=== PATIENT | female | born 1965 | race Caucasian/White ===

== ENCOUNTER 2018-04-30 10:57 | Outpatient (CLI) | payer OTHER | END 2018-04-30 11:02 | disposition home or self-care (01) | LOC: MAMO-SONO 10:57 | DX: Z12.31 Encounter for screening mammogram for malignant neoplasm of breast (principal); N60.01 Solitary cyst of right breast; N60.02 Solitary cyst of left breast ==

== ENCOUNTER 2019-06-20 12:39 | Outpatient (CLI) | payer OTHER | END 2019-06-20 15:37 | disposition home or self-care (01) | LOC: MAMO-SONO 12:39 | DX: Z12.31 Encounter for screening mammogram for malignant neoplasm of breast (principal); Z87.898 Personal history of other specified conditions; N60.29 Fibroadenosis of unspecified breast ==

== ENCOUNTER 2020-02-01 22:52 | Emergency (ER) | payer OTHER ==
[~2020-02-01] VITALS: Ht 61 cm; Wt 5.0 kg
[2020-02-01] MEDS ORDERED: PROMETRIUM200 MG (23:10)
[2020-02-01] MEDS ORDERED: DIM (23:11)
[2020-02-02] MEDS ORDERED: TOPROL XL50 M1 PO (15:37)
[2020-02-02] MEDS ORDERED: FLECAINIDE ACET50 MG PO (15:37)
[2020-02-02] MEDS ORDERED: NASAL MIST126 ML NASAL (15:37)
[2020-02-02] MEDS ORDERED: ELIQUIS5 MG PO (15:37)
== END 2020-02-02 15:40 | disposition home or self-care (01) ==
LOC: ER 22:52 → CPU-OBS 23:08 → SURH 02-02 02:29 → ER 02-02 02:29 → SURH 02-02 16:33
DX: I48.0 Paroxysmal atrial fibrillation (principal); I08.3 Combined rheumatic disorders of mitral, aortic and tricuspid valves; Z79.01 Long term (current) use of anticoagulants
CPT/HCPCS: G0378; G0379; 93306; 93005

== ENCOUNTER 2020-07-21 13:00 | Outpatient (CLI) | payer OTHER ==
[~2020-07-21 13:00] MED LIST: DIM; ELIQUIS5 MG PO; FLECAINIDE ACET50 MG PO; NASAL MIST126 ML NASAL; PROMETRIUM200 MG; TOPROL XL50 M1 PO
== END 2020-07-21 15:00 | disposition home or self-care (01) ==
LOC: PPH VACUNA 13:00
DX: Z23 Encounter for immunization (principal)

== ENCOUNTER 2020-10-20 09:00 | Outpatient (CLI) | payer OTHER | END 2020-10-20 15:00 | disposition home or self-care (01) | LOC: PPH VACUNA 09:00 | DX: Z23 Encounter for immunization (principal) ==

== ENCOUNTER 2021-08-02 08:00 | Outpatient (CLI) | payer OTHER | END 2021-08-02 08:30 | disposition home or self-care (01) | LOC: PPH VACUNA 08:00 | PROVIDERS: ATTEND Emergency Medicine Pediatric Emergency Medicine | DX: Z23 Encounter for immunization (principal) ==

== ENCOUNTER 2021-11-16 06:40 | Outpatient (CLI) | payer OTHER | END 2021-11-16 06:44 | disposition home or self-care (01) | LOC: LAB 06:40 | PROVIDERS: ATTEND Internal Medicine | DX: D64.89 Other specified anemias (principal); R10.84 Generalized abdominal pain; E78.49 Other hyperlipidemia ==

== ENCOUNTER 2022-02-05 10:23 | Outpatient (CLI) | payer OTHER | END 2022-02-05 10:30 | disposition home or self-care (01) | LOC: LAB 10:23 | DX: E20.0 Idiopathic hypoparathyroidism (principal); E03.0 Congenital hypothyroidism with diffuse goiter; E34.9 Endocrine disorder, unspecified ==

== ENCOUNTER 2022-02-10 08:00 | Outpatient (CLI) | payer OTHER | END 2022-02-10 08:30 | disposition home or self-care (01) | LOC: PPH VACUNA 08:00 | PROVIDERS: ATTEND Emergency Medicine Pediatric Emergency Medicine | DX: Z23 Encounter for immunization (principal) ==

== ENCOUNTER 2022-02-24 09:04 | Outpatient (CLI) | payer OTHER | END 2022-02-24 15:16 | disposition home or self-care (01) | LOC: LAB 09:04 | PROVIDERS: ATTEND Obstetrics & Gynecology | DX: E55.9 Vitamin D deficiency, unspecified (principal); E78.00 Pure hypercholesterolemia, unspecified; E28.39 Other primary ovarian failure ==

== ENCOUNTER 2022-04-29 07:01 | Inpatient (IN) | payer OTHER ==
[~2022-04-29] VITALS: Ht 157.5 cm; Wt 58.1 kg
--- NOTE | 2022-04-29 07:13 | NUR ---
SE RECIBE PTE ALERTA Y ORIENTADA X3, QUIEN REFIERE DOLOR ABDOMINAL EN LADO CHERIE, EL CUAL COMENZO EL LILY DE HOY. SE CESAR S/V Y SE UBICA PTE EN YONI 7.
[2022-04-29] MEDS ORDERED: PROGESTERONE200 MG (15:30)
[2022-05-02] MEDS ORDERED: HYOSCYAMINE0.125 M1 SL (10:02)
[2022-05-02] MEDS ORDERED: CIPRO500 MG PO (10:03)
[2022-05-02] MEDS ORDERED: FLAGYL375 MG PO (10:04)
[2022-05-02] MEDS ORDERED: PROTONIX40 MG PO (10:07)
[2022-05-02] MEDS ORDERED: PROBIOTIC1 EAC4 PO (10:08)
== END 2022-05-02 13:46 | disposition home or self-care (01) | DRG 392 ==
LOC: ER 07:01 → OB/GYN 12:28 → SEC-K 12:28 → OB/GYN 14:47
PROVIDERS: ADMIT Internal Medicine; ATTEND Internal Medicine
PROC: BW21YZZ Computerized Tomography (CT Scan) of Abdomen and Pelvis using Other Contrast (ICD-10-PCS; principal; 2022-04-29)
DX: K57.32 Diverticulitis of large intestine without perforation or abscess without bleeding (principal); K62.5 Hemorrhage of anus and rectum; I10 Essential (primary) hypertension; I48.91 Unspecified atrial fibrillation; Z20.822 Contact with and (suspected) exposure to COVID-19

== ENCOUNTER 2022-05-13 06:41 | Outpatient (CLI) | payer OTHER ==
[~2022-05-13 06:41] MED LIST changes: +CIPRO500 MG PO; +FLAGYL375 MG PO; +HYOSCYAMINE0.125 M1 SL; +PROBIOTIC1 EAC4 PO; +PROGESTERONE200 MG; +PROTONIX40 MG PO
== END 2022-05-13 06:42 | disposition home or self-care (01) ==
LOC: LAB 06:41
PROVIDERS: ATTEND Specialist
DX: R10.9 Unspecified abdominal pain (principal)

== ENCOUNTER 2022-07-06 08:00 | Outpatient (CLI) | payer OTHER | END 2022-07-06 08:05 | disposition home or self-care (01) | LOC: PPH VACUNA 08:00 | PROVIDERS: ATTEND Emergency Medicine Pediatric Emergency Medicine | DX: Z23 Encounter for immunization (principal) ==

== ENCOUNTER 2022-07-15 08:25 | Outpatient (CLI) | payer OTHER | END 2022-07-15 08:26 | disposition home or self-care (01) | LOC: LAB 08:25 | PROVIDERS: ATTEND Surgery | DX: R10.32 Left lower quadrant pain (principal); K57.32 Diverticulitis of large intestine without perforation or abscess without bleeding; Z03.818 Encounter for observation for suspected exposure to other biological agents ruled out; Z20.822 Contact with and (suspected) exposure to COVID-19 ==

== ENCOUNTER 2023-04-12 08:06 | Outpatient (CLI) | payer OTHER | END 2023-04-12 08:07 | disposition home or self-care (01) | LOC: LAB 08:06 | PROVIDERS: ATTEND Specialist | DX: R79.9 Abnormal finding of blood chemistry, unspecified (principal); R94.4 Abnormal results of kidney function studies ==

== ENCOUNTER 2023-04-12 12:14 | Outpatient (CLI) | payer OTHER | END 2023-04-12 12:19 | disposition home or self-care (01) | LOC: TOM 12:14 | PROVIDERS: ATTEND Specialist | DX: K57.30 Diverticulosis of large intestine without perforation or abscess without bleeding (principal) ==

== ENCOUNTER 2023-07-14 11:00 | Outpatient (CLI) | payer OTHER | END 2023-07-14 11:10 | disposition home or self-care (01) | LOC: PPH VACUNA 11:00 | PROVIDERS: ATTEND Emergency Medicine Pediatric Emergency Medicine | DX: Z23 Encounter for immunization (principal) ==

== ENCOUNTER 2023-08-21 08:19 | Outpatient (CLI) | payer OTHER ==
[2023-08-21 09:01] LABS: URINE APPEARANCE Cloudy; URINE BILIRRUBIN Negative (NEGATIVE); URINE BLOOD Large; URINE COLOR Yellow; URINE GLUCOSE Negative (NEGATIVE); URINE LEUKOCYTE Large; URINE NITRATE Positive; URINE PROTEIN 30 (NEGATIVE)
[2023-08-21 09:04] LABS: URINE RBC 792.1 uL (0.0-20.8); URINE WBC 3371.2 uL (0.0-23.2)
[2023-08-21 09:11] LABS: URINE BACTERIA > 9821.5 uL (0.0-1933)
== END 2023-08-21 13:34 | disposition home or self-care (01) ==
LOC: LAB 08:19
PROVIDERS: ATTEND Specialist
DX: N39.0 Urinary tract infection, site not specified (principal); Z88.0 Allergy status to penicillin; Z88.6 Allergy status to analgesic agent

== ENCOUNTER → 2024-01-15 06:45 | Outpatient (CLI) | payer OTHER ==
[2024-01-15 07:58] LABS: HEMOGLOBIN 13.7 g/dL (12.0-15.00); MEAN CELL VOLUME 89.4 fL (80.00-100.00); MEAN CORPUSCULAR HEMOGLOBIN 30.7 pg (27.00-32.0); MEAN CORPUSCULAR HGB CONC 34.3 g/dl (32.0-36.0); PLATELET COUNT 323 K/uL (150-450); RED BLOOD COUNT 4.47 M/uL (4.00-6.00); RED CELL DISTRIBUTION WIDTH 12.9 % (11.5-14.5)
[2024-01-15 08:22] LABS: PH,URINE 5.5 (5.0-8.0); URINE APPEARANCE Clear; URINE BILIRRUBIN Negative (NEGATIVE); URINE COLOR Yellow; URINE GLUCOSE Negative (NEGATIVE); URINE LEUKOCYTE Small; URINE NITRATE Negative; URINE PROTEIN Negative (NEGATIVE); URINE UROBILINOGEN 0.2 E.U./dl
[2024-01-15 08:23] LABS: URINE BACTERIA 94.4 uL (0.0-1933); URINE EPITHELIAL CELLS 16.6 uL (0.0-38.8); URINE RBC 19.1 uL (0.0-20.8)
[2024-01-15 08:23] LABS: INR 0.98; PARTIAL THROMBOPLASTIN TIME 28.8 SECONDS (22.0-34.0); PROTHROMBIN TIME 10.3 SECONDS (9.0-11.5)
[2024-01-15 08:42] LABS: ALBUMIN 3.8 gm/dL (3.4-5.0); BILIRUBIN TOTAL 0.88 mg/dL (0.3-1.2); CALCIUM 8.6 mg/dL (8.5-10.1); CREATININE SERUM 0.58 mg/dL (0.55-1.02); GFR 106.4; GLOBULINA 2.9 G/DL (2.4-3.5); POTASSIUM 4.31 mEq/L (3.5-5.1); TOTAL PROTEIN 6.7 gm/dL (6.4-8.2)
[2024-01-16 08:24] LABS: URINE BLOOD TRACES/R
== END | disposition home or self-care (01) ==
LOC: RAD 06:45
PROVIDERS: ATTEND Specialist
DX: Z01.818 Encounter for other preprocedural examination (principal)

== ENCOUNTER 2025-05-20 11:52 | Outpatient (CLI) | payer OTHER | END 2025-05-20 11:55 | disposition home or self-care (01) | LOC: MAMO-SONO 11:52 | PROVIDERS: ATTEND Obstetrics & Gynecology | DX: N60.11 Diffuse cystic mastopathy of right breast (principal); N60.12 Diffuse cystic mastopathy of left breast; Z12.31 Encounter for screening mammogram for malignant neoplasm of breast ==

== ENCOUNTER 2025-09-01 13:54 | Outpatient (CLI) | payer OTHER ==
[2025-09-01 14:21] LABS: BASO % 0.4 % (0.1-1.2); EOS # 0.03 (0.04-0.54); EOS % 0.3 % (0.7-7.0); LYMPH # 1.39 (1.18-3.74); LYMPH % 12.2 % (19.3-53.1); MEAN PLATELET VOLUME 9.00 fl (9.4-12.4); MONO # 0.66 (0.24-0.82); MONO % 5.8 % (4.7-12.5); NEUT # 9.24 (1.56-6.13); NEUT % 81.0 % (34.0-71.1); RED CELL DISTRIBUTION WIDTH 11.8 % (11.6-14.4)
[2025-09-01 14:24] LABS: URINE APPEARANCE Clear; URINE BILIRRUBIN Negative (NEGATIVE); URINE BLOOD NHT; URINE COLOR Yellow; URINE KETONE Trace (NEGATIVE); URINE LEUKOCYTE Negative; URINE NITRATE Negative; URINE PROTEIN Negative (NEGATIVE); URINE UROBILINOGEN 0.2 E.U./dl
[2025-09-01 14:27] LABS: URINE BACTERIA 14.3 uL (0.0-1933); URINE EPITHELIAL CELLS 4.6 uL (0.0-38.8); URINE RBC 29.0 uL (0.0-20.8); URINE WBC 2.1 uL (0.0-23.2)
[2025-09-01 14:53] LABS: URINE CAST 0.00 uL (0.0-1.40); URINE GLUCOSE >=1000 MG/DL (NEGATIVE)
[2025-09-01 15:21] LABS: ALT/SGPT 22.0 U/L (12-78); AST/SGOT 13.0 U/L (15-37); BILIRUBIN TOTAL 0.38 mg/dL (0.3-1.2); BUN CREA RATIO 28.0 (7.0-25.0); CREATININE SERUM 0.54 mg/dL (0.55-1.02); GFR 114.77; GLOBULINA 3.0 G/DL (2.4-3.5); GLUCOSE FASTING 164.0 mg/dL (65-100); OSMOLALITY SERUM 282.0 MOSM/KG (275-295)
[2025-09-01] MEDS ORDERED: TOPROL XL50 M1 (16:10)
== END 2025-09-01 15:24 | disposition home or self-care (01) ==
LOC: LAB 13:54
PROVIDERS: ATTEND Internal Medicine
DX: E03.9 Hypothyroidism, unspecified (principal); N39.0 Urinary tract infection, site not specified; E78.9 Disorder of lipoprotein metabolism, unspecified; K57.00 Diverticulitis of small intestine with perforation and abscess without bleeding

== ENCOUNTER 2025-09-01 15:57 | Inpatient (IN) | payer OTHER ==
[~2025-09-01] VITALS: Ht 157.5 cm; Wt 58.1 kg
[2025-09-01 16:07] VITALS: O2SAT 98
[2025-09-01] MEDS ORDERED: TOPROL XL50 M1 (16:10)
--- NOTE | 2025-09-01 16:11 | NUR ---
PTE ALERTA Y ORIENTADA X3 VERBALIZA QUE TIENE DOLOR EN EL ABDOMEN SUPERIOR Y IQZ QUE SE IRIADIA PARA LA ESPALDA DESDE LA NOCHE DE EMILIO
[2025-09-01] MEDS ORDERED: PANTOPRAZOLE SODIUM 40 MG/VIAL VIAL IV SCH (17:13)
[2025-09-01] MEDS ORDERED: 0.9 % SODIUM CHLORIDE 1,000 ML IV SCH (17:15)
[2025-09-01] MEDS ORDERED: CIPROFLOXACIN IN 5 % DEXTROSE 400 MG/200 ML PIGGYBAG IV ONE (17:30)
[2025-09-01] MEDS ORDERED: METRONIDAZOLE/SODIUM CHLORIDE 500 MG/100 ML PIGGYBACK IV ONE (17:30)
[2025-09-01] MEDS ORDERED: MORPHINE SULFATE 2 MG/ML SYRINGE IV PRN (18:00)
[2025-09-01] MEDS ORDERED: CIPROFLOXACIN IN 5 % DEXTROSE 200 ML IV SCH (18:00)
[2025-09-01] MEDS ORDERED: METOPROLOL TARTRATE 50 MG TABLET PO SCH (18:01)
[2025-09-01] MEDS ORDERED: ONDANSETRON HCL 4 MG in 0.9 % SODIUM CHLORIDE 50 ML IV PRN (18:15)
[2025-09-01] MEDS ORDERED: ACETAMINOPHEN 325 MG TABLET PO PRN (18:15)
--- NOTE | 2025-09-01 18:33 | NUR ---
SE EDUCA PACIENTE SOBRE EL TX MEDICO Y ESTA REFIERE ENTENDER. SE CANALIZA Y SE ADMINISTRA MEDICAMENTOS AXEL ORDEN MEDICA. PENDIENTE A CT SCAN
[2025-09-01 18:45] VITALS: BP 130/90
[2025-09-01] MEDS ORDERED: ACETAMINOPHEN 500 MG GEL..CAP PO PRN (18:45)
[2025-09-01 19:05] LABS: INR 0.96
[2025-09-01 20:36] VITALS: BP 136/84
[2025-09-02 00:32] VITALS: BP 118/74
[2025-09-02 08:35] VITALS: BP 148/79
[2025-09-02 16:00] VITALS: BP 109/70
[2025-09-03 00:57] VITALS: BP 113/72
[2025-09-03 06:47] LABS: BASO % 1.0 % (0.1-1.2); EOS # 0.07 (0.04-0.54); EOS % 1.7 % (0.7-7.0); LYMPH # 1.65 (1.18-3.74); LYMPH % 41.1 % (19.3-53.1); MEAN PLATELET VOLUME 8.90 fl (9.4-12.4); MONO # 0.35 (0.24-0.82); MONO % 8.7 % (4.7-12.5); NEUT # 1.89 (1.56-6.13); NEUT % 47.3 % (34.0-71.1); RED CELL DISTRIBUTION WIDTH 11.7 % (11.6-14.4)
[2025-09-03 07:22] LABS: ALT/SGPT 16.0 U/L (12-78); AST/SGOT 10.0 U/L (15-37); BILIRUBIN TOTAL 0.42 mg/dL (0.3-1.2); BUN CREA RATIO 13.0 (7.0-25.0); CREATININE SERUM 0.4 mg/dL (0.55-1.02); GFR 162.27; GLOBULINA 2.7 G/DL (2.4-3.5); GLUCOSE FASTING 90.0 mg/dL (65-100); OSMOLALITY SERUM 284.0 MOSM/KG (275-295)
[2025-09-03 08:28] VITALS: BP 117/71
[2025-09-03 16:00] VITALS: BP 123/80
[2025-09-03] MEDS ORDERED: LACTOBACILLUS ACIDOPHILUS 1 CAP CAP PO SCH (17:00)
[2025-09-04 03:26] VITALS: BP 120/78
[2025-09-04] MEDS ORDERED: FENOFIBRATE200 MG PO (07:22)
[2025-09-04] MEDS ORDERED: PROBIOTIC1 EAC4 PO (07:22)
[2025-09-04] MEDS ORDERED: METRONIDAZOLE500 MG PO (07:22)
[2025-09-04 08:00] VITALS: BP 138/84
== END 2025-09-04 10:12 | disposition home or self-care (01) | DRG 392 ==
LOC: ER 15:57 → OB/GYN 18:23
PROVIDERS: General Practice; Internal Medicine Infectious Disease; ADMIT Internal Medicine; ATTEND Internal Medicine
PROC: BW21ZZZ Computerized Tomography (CT Scan) of Abdomen and Pelvis (ICD-10-PCS; principal; 2025-09-01)
DX: K57.92 Diverticulitis of intestine, part unspecified, without perforation or abscess without bleeding (principal); K62.5 Hemorrhage of anus and rectum; R10.32 Left lower quadrant pain; R11.0 Nausea; I48.91 Unspecified atrial fibrillation; M62.08 Separation of muscle (nontraumatic), other site

== ENCOUNTER 2025-10-31 13:45 | Outpatient (CLI) | payer OTHER ==
[~2025-10-31 13:45] MED LIST changes: +FENOFIBRATE200 MG PO; +METRONIDAZOLE500 MG PO; +TOPROL XL50 M1
== END 2025-10-31 13:55 | disposition home or self-care (01) ==
LOC: PPH VACUNA 13:45
PROVIDERS: ATTEND Emergency Medicine Pediatric Emergency Medicine
DX: Z23 Encounter for immunization (principal)